=== PATIENT | female | born 1995 | race Caucasian/White ===

== ENCOUNTER 2019-03-24 11:17 | Emergency (ER) | payer MEDICAID ==
--- NOTE | 2019-03-24 11:40 | ER Document Report ---
ED Medical Screen (RME) - General Chief Complaint: Vaginal Bleeding Stated Complaint: VAGINAL BLEEDING Time Seen by Provider: 03/24/19 11:37 Mode of Arrival: Ambulatory Information source: Patient Notes: 23-year-old female presented to ED for vaginal bleeding. She states her. Started about a week ago and lasted its normal length started to get day porter and then also only started getting heavy again and has been going between heavy and light for the last several days. She states this lasted from 8 to 10 days now and that is not her normal. Patient is alert oriented respirations regular nonlabored speaking in full sentences. She states she has never had cycle like this before she states she is having mild cramping. I have greeted and performed a rapid initial assessment of this patient. A comprehensive ED assessment and evaluation of the patient, analysis of test results and completion of medical decision making process will be conducted by an additional ED providers. - Related Data Allergies/Adverse Reactions: amoxicillin Allergy (Verified 03/24/19 11:37) Physical Exam - Vital signs Vitals: Temp Pulse Resp BP Pulse Ox 97.9 F 71 18 114/61 99 03/24/19 11:23 03/24/19 11:23 03/24/19 11:23 03/24/19 11:23 03/24/19 11:23 Course - Vital Signs Vital signs: Temp Pulse Resp BP Pulse Ox 97.9 F 71 18 114/61 99 03/24/19 11:23 03/24/19 11:23 03/24/19 11:23 03/24/19 11:23 03/24/19 11:23
[2019-03-24 12:31] LABS: APPEARANCE,URINE CLEAR; BILIRUBIN,URINE NEGATIVE (NEGATIVE); COLOR,URINE YELLOW; GLUCOSE, URINE NEGATIVE (NEGATIVE); KETONES,URINE NEGATIVE (NEGATIVE); PROTEIN,URINE NEGATIVE (NEGATIVE); URINE SPECIFIC GRAVITY 1.023; UROBILINOGEN,URINE NEGATIVE mg/dL (<2.0)
--- NOTE | 2019-03-24 12:32 | ER Document Report ---
ED General - General Chief Complaint: Vaginal Bleeding Stated Complaint: VAGINAL BLEEDING Time Seen by Provider: 03/24/19 11:37 Primary Care Provider: DANIELLE SALAZAR DO [ACTIVE STAFF] - Follow up in 1 week Mode of Arrival: Ambulatory - [facility] Notes: 23-year-old female to the emergency department with complaints of vaginal bleeding for the past 8 days. She states that about 2 weeks ago she had a ParaGard IUD removed at a [facility]. She states that she is desiring to be and that is why she had it removed. She states after removal she had 1 to 2 days of cramping and light spotting and then it resolved. She states that this past week she has been having mild cramping and intermittently heavy vaginal bleeding. She states that while she was on the ParaGard she had a monthly period that lasted approximately 4 days. She states she is never had a period that lasted this long. She denies any fevers, chills, abdominal pain, nausea, vomiting. She denies any urinary symptoms, vaginal discharge, concern for STD. She states she had a recent Pap smear and STD check and all were negative. - Related Data Allergies/Adverse Reactions: amoxicillin Allergy (Verified 03/24/19 11:37) Past Medical History - General Information source: Patient - Social History Smoking Status: Current Every Day Smoker Chew tobacco use (# tins/day): No Frequency of alcohol use: None Drug Abuse: None Family History: Reviewed & Not Pertinent Patient has suicidal ideation: No Patient has homicidal ideation: No Review of Systems - Review of Systems Constitutional: denies: Chills, Fever EENT: No symptoms reported Cardiovascular: denies: Chest pain, Palpitations, Dyspnea, Syncope, Dizziness, Lightheaded Respiratory: denies: Cough, Short of breath Gastrointestinal: denies: Abdominal pain, Diarrhea, Nausea, Vomiting Genitourinary: denies: Frequency, Flank pain, Incontinence Female Genitourinary: Heavy/abnormal periods, Vaginal bleeding Musculoskeletal: No symptoms reported Skin: No symptoms reported Hematologic/Lymphatic: No symptoms reported Neurological/Psychological: No symptoms reported -: Yes All other systems reviewed and negative Physical Exam - Vital signs Vitals: Temp Pulse Resp BP Pulse Ox 97.9 F 71 18 114/61 99 03/24/19 11:23 03/24/19 11:23 03/24/19 11:23 03/24/19 11:23 03/24/19 11:23 Interpretation: Normal - General General appearance: Appears well, Alert - HEENT Head: Normocephalic, Atraumatic Eyes: Normal Pupils: PERRL Ears: Normal External canal: Normal Tympanic membrane: Normal Sinus: Normal Nasal: Normal Mouth/Lips: Normal Pharynx: Normal. No: Potential airway comprom. Neck: Normal, Supple. No: Lymphadenopathy, Meningismus - Respiratory Respiratory status: No respiratory distress Chest status: Nontender Breath sounds: Normal. No: Rales, Rhonchi, Stridor, Wheezing Chest palpation: Normal - Cardiovascular Rhythm: Regular Heart sounds: Normal auscultation Murmur: No - Abdominal Inspection: Normal Distension: No distension Bowel sounds: Normal Tenderness: Nontender. No: Tender, McBurney's point, Salamanca's sign, Guarding, R ebound Organomegaly: No organomegaly - Back Back: Normal, Nontender. 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 No: Pronator drift Sensory: Normal - Psychological Associated symptoms: Normal affect, Normal mood - Skin Skin Temperature: Warm Skin Moisture: Dry Skin Color: Normal Course - Re-evaluation Re-evalutation: 03/24/19 Called lab about serum HCG. It is negative Impression: DUB, will discharge patient. Give SOFTWARE TEST MANAGER follow up. Offered Provera, but patient declined. She has only mild vaginal bleeding on exam and H and H are stable. Encouraged to return if worsening bleeding, passing out, fevers, or any other concerns. - Vital Signs Vital signs: Temp Pulse Resp BP Pulse Ox 97.9 F 71 18 114/61 99 03/24/19 11:37 03/24/19 11:37 03/24/19 11:37 03/24/19 11:37 03/24/19 11:37 - Laboratory Result Diagrams: 03/24/19 11:52 03/24/19 11:52 Laboratory results interpreted by me: 03/24/19 11:52 Urine Ascorbic Acid 20 H Procedures - Pelvic Exam Pelvic exam Cultures obtained: No Wet prep obtained: No Herpes culture obtained: No Foreign body removed: No Bimanual exam performed: Yes Discharge - Discharge Clinical Impression: Dysfunctional uterine bleeding Condition: Stable Disposition: HOME, SELF-CARE Instructions: Dysfunctional Uterine Bleeding ([facility]) Additional Instructions: Return if worsening pain, passing out, bleeding through more than 3 pads an hour. Follow up with SOFTWARE TEST MANAGER. Referrals: DANIELLE SALAZAR DO [ACTIVE STAFF] - Follow up in 1 week
[2019-03-24 13:38] LABS: ABSOLUTE BASOPHILS # (AUTO) 0.1 10^3/uL (0.0-0.2); ABSOLUTE EOSINOPHILS # (AUTO) 0.3 10^3/uL (0.0-0.6); ABSOLUTE LYMPHOCYTES (AUTO) 2.9 10^3/uL (0.5-4.7); ABSOLUTE MONOCYTES (AUTO) 0.6 10^3/uL (0.1-1.4); ABSOLUTE NEUT (AUTO) 5.2 10^3/uL (1.7-8.2); BASOPHILS % (AUTO) 0.6 % (0-2); EOSINOPHILS % (AUTO) 3.4 % (0-6); HEMATOCRIT 42.7 % (36.0-47.0); HEMOGLOBIN 14.8 g/dL (12.0-15.5); LYMPHOCYTES % (AUTO) 32.1 % (13-45); MEAN CORPUSCULAR HEMOGLOBIN 31.3 pg (27.0-33.4); MEAN CORPUSCULAR HGB CONC 34.6 g/dL (32.0-36.0); MEAN CORPUSCULAR VOLUME 90 fl (80-97); MONOCYTES % (AUTO) 6.8 % (3-13); PLATELET COUNT 273 10^3/uL (150-450); RED BLOOD COUNT 4.72 10^6/uL (3.72-5.28); RED CELL DISTRIBUTION WIDTH 12.9 % (11.5-14.0); SEGMENTED NEUTROPHILS % (AUTO) 57.1 % (42-78); TOTAL CELLS COUNTED % (AUTO) 100 %; WHITE BLOOD COUNT 9.1 10^3/uL (4.0-10.5)
[2019-03-24 13:57] LABS: ANION GAP 10 (5-19); BLOOD UREA NITROGEN 11 mg/dL (7-20); CALCIUM 9.5 mg/dL (8.4-10.2); CARBON DIOXIDE 27 mmol/L (22-30); CHLORIDE 103 mmol/L (98-107); GLUCOSE 90 mg/dL (75-110); POTASSIUM 3.9 mmol/L (3.6-5.0)
[2019-03-24 15:20] VITALS: BP 104/56
== END 2019-03-24 15:45 | disposition home or self-care (01) ==
LOC: ER 11:17
DX: N93.8 Other specified abnormal uterine and vaginal bleeding (principal); Z98.890 Other specified postprocedural states; R25.2 Cramp and spasm; Z88.0 Allergy status to penicillin; F17.200 Nicotine dependence, unspecified, uncomplicated
CPT/HCPCS: 36415; 80048; 81001; 84703; 85025; 99284

== ENCOUNTER 2019-09-27 07:05 | Emergency (ER) | payer MEDICAID ==
[2019-09-27] MEDS ORDERED: LIDOCAINE 1% INJ-PF (10 MG/ML) 30 ML SDV NEB ONE (07:49)
[2019-09-27] MEDS ORDERED: IPRATROPIUM/ALBUTEROL 0.5-2.5 MG/3 ML AMPUL NEB ONE (07:49)
[2019-09-27] MEDS ORDERED: PREDNISONE 20 MG TABLET PO ONE (07:49)
--- NOTE | 2019-09-27 08:01 | ER Document Report ---
Entered by KIANA WITT SCRIBE 09/27/19 0754 Acting as scribe for:GREGORY HAYES MD ED GI/ - General Stated Complaint: POSSIBLE ACID REFLUX Time Seen by Provider: 09/27/19 07:36 Mode of Arrival: Ambulatory Information source: Patient Notes: This 24 year old female patient that is 28 weeks presents to the emergency department today with complaints of possible aspiration of reflux last night around 2:30 AM. Patient states she was woken by a burning in her chest and a bad taste in the back of her mouth. Patient states that she has a history of GERD and it has been much worse since becoming . Patient states her "lungs hurt" adding that it pemberton when she breathes. - Related Data Allergies/Adverse Reactions: amoxicillin Allergy (Verified 09/27/19 07:55) Past Medical History - General Information source: Patient - Social History Smoking Status: Former Smoker Cigarette use (# per day): No Frequency of alcohol use: None Drug Abuse: None Family History: Reviewed & Not Pertinent Pulmonary Medical History: Reports: Hx Asthma GI Medical History: Reports: Hx Gastroesophageal Reflux Disease - Exacerbated by Surgical Hx: Negative Review of Systems - Review of Systems Constitutional: No symptoms reported EENT: No symptoms reported Cardiovascular: No symptoms reported Respiratory: See HPI, Hurts to breathe Gastrointestinal: See HPI, Other - GERD Genitourinary: No symptoms reported Female Genitourinary: See HPI, Musculoskeletal: No symptoms reported Skin: No symptoms reported Hematologic/Lymphatic: No symptoms reported Neurological/Psychological: No symptoms reported -: Yes All other systems reviewed and negative Physical Exam - Vital signs Vitals: Temp Pulse Resp BP Pulse Ox 98.5 F 97 16 127/65 H 97 09/27/19 07:09 09/27/19 07:09 09/27/19 07:09 09/27/19 07:09 09/27/19 07:09 - Notes Notes: Physical Exam: General: Alert, appears well. HEENT: Normocephalic. Atraumatic. PERRL. Extraocular movements intact. Oropharynx clear. Posterior oropharynx erythema with uvular elongation and edema. Neck: Supple. Non-tender. Respiratory: No respiratory distress. Equal breath sounds bilaterally, mostly clear. Cardiovascular: Regular rate and rhythm. Abdominal: Gravid female. Non-tender. No distension. Normal Bowel Sounds. Back: No gross abnormalities. Extremities: Moves all four extremities. Upper extremities: Normal inspection. Normal ROM. Lower extremities: Normal inspection. No edema. Normal ROM. Neurological: Normal cognition. AAOx4. Normal speech. Psychological: Normal affect. Normal Mood. Skin: Warm. Dry. Normal color. Course - Re-evaluation Re-evalutation: 09/27/19 08:54 Patient reports he felt better after the lidocaine nebulization. We reviewed the need to go to bed within empty stomach and drink some antacids at bedtime. Also benefit of elevating the head of the bed, either by placing brakes under the bedpost, or perhaps folding blankets under the head of the mattress. - Vital Signs Vital signs: Temp Pulse Resp BP Pulse Ox 98.5 F 97 16 127/65 H 97 09/27/19 07:09 09/27/19 07:09 09/27/19 07:09 09/27/19 07:09 09/27/19 07:09 Discharge - Discharge Clinical Impression: GERD (gastroesophageal reflux disease) Qualifiers: Esophagitis presence: esophagitis presence not specified Qualified Code(s): K21.9 - Gastro-esophageal reflux disease without esophagitis Aspiration into airway Qualifiers: Encounter type: initial encounter Qualified Code(s): T17.908A - Unspecified foreign body in respiratory tract, part unspecified causing other injury, initial encounter Condition: Stable Disposition: HOME, SELF-CARE Additional Instructions: Reflux Disease (GERD) Gastro-Esophageal Reflux Disease (GERD) is caused by stomach acid refluxing back up into the esophagus. The valve at the end of the esophagus may be weak. This is common in persons with a hiatal hernia. GERD symptoms can include indigestion, chest pain, heartburn, or food "sticking." Certain foods, alcohol, and aspirin can make GERD worse. Treatment depends on the severity. Usually, antacids or acid-suppressing medicines are used. When the esophagus is acutely inflamed, the physician will often prescribe membrane-protective drugs such as Carafate. Some patients benefit from medication such as Reglan that tightens the valve at the top of the stomach. Avoid those foods that bring on your symptoms. For many people, these foods are coffee, chocolate, onions, garlic, and carbonated drinks. Don't use alcohol, aspirin, caffeine, or tobacco. Don't eat late at night -- within 4 hours of bedtime. Don't over-eat. If necessary, elevate the head of your bed about 4 inches so that stomach acid will not roll up into your esophagus. Call the doctor if you develop severe chest pain, inability to swallow f luids, fever, or worsening symptoms. Take antacids at bedtime. Do not eat or drink much fluids before you go to bed. Elevate the head of the bed. Take the prednisone as prescribed for the next 2 days, start the medication tomorrow. Follow-up with your GENER[facility] ADJUSTER doctor if you continue to have problems. RETURN TO THE EMERGENCY ROOM IF ANY NEW OR WORSENING SYMPTOMS. Prescriptions: Prednisone [Deltasone 20 mg Tablet] 20 mg PO TID #6 tablet I personally performed the services described in the documentation, reviewed and edited the documentation which was dictated to the scribe in my presence, and it accurately records my words and actions.
[2019-09-27 09:03] VITALS: BP 126/70
== END 2019-09-27 09:04 | disposition home or self-care (01) ==
LOC: ER 07:05
DX: O99.613 Diseases of the digestive system complicating pregnancy, third trimester (principal); K21.9 Gastro-esophageal reflux disease without esophagitis; O9A.213 Injury, poisoning and certain other consequences of external causes complicating pregnancy, third trimester; T17.908A Unspecified foreign body in respiratory tract, part unspecified causing other injury, initial encounter; X58.XXXA Exposure to other specified factors, initial encounter; O26.893 Other specified pregnancy related conditions, third trimester; R07.1 Chest pain on breathing; O99.513 Diseases of the respiratory system complicating pregnancy, third trimester; J45.909 Unspecified asthma, uncomplicated; Z3A.28 28 weeks gestation of pregnancy; Z87.891 Personal history of nicotine dependence; Z88.0 Allergy status to penicillin
CPT/HCPCS: 94640; 99283; J3490; J7512; J7620